=== PATIENT | female | born 1965 | race African-American/Black ===

== ENCOUNTER 2015-12-21 14:05 | Outpatient (RCR) | payer OTHER | END 2016-02-29 | LOC: WSOH | DX: M25.511 Pain in right shoulder (principal) ==

== ENCOUNTER 2019-03-01 11:37 | Emergency (ER) | payer OTHER ==
[~2019-03-01] VITALS: Ht 157.5 cm; Wt 85.5 kg
[2019-03-01 11:43] VITALS: BP 164/93; TEMP 98.2
[2019-03-01 11:56] LABS: COLLECTION METHOD CLEAN CATCH
[2019-03-01 12:05] LABS: MUCOUS Present /lpf; PH 5 (5-8); SQUAMOUS EPITHELIAL 0-2 /hpf; URINE APPEARANCE Clear; URINE BACTERIA None Seen /hpf; URINE BILIRUBIN Negative (NEGATIVE); URINE BLOOD Negative (NEGATIVE); URINE COLOR Yellow; URINE GLUCOSE Negative (NEGATIVE); URINE KETONE Negative (NEGATIVE); URINE LEUKOCYTE ESTERASE Negative (NEGATIVE); URINE NITRATE Negative (NEGATIVE); URINE PROTEIN(semi-quant) Negative (NEGATIVE); URINE RBC None Seen /hpf; URINE UROBILINOGEN Negative (NEGATIVE)
[2019-03-01] MEDS ORDERED: CEPHALEXIN500 M1 PO (12:17)
[2019-03-01 12:38] VITALS: PULSE 72
== END 2019-03-01 12:38 | disposition home or self-care (01) ==
LOC: COL.ER 11:37
PROVIDERS: Physician Assistant
DX: R30.0 Dysuria (principal); Z98.51 Tubal ligation status

== ENCOUNTER → 2019-09-18 | Outpatient (CLI) | payer OTHER ==
[~2019-09-18] MED LIST: CEPHALEXIN500 M1 PO
== END ==
LOC: COL.RAD 12:50
DX: M25.511 Pain in right shoulder (principal); Z96.611 Presence of right artificial shoulder joint
CPT/HCPCS: Q9967

== ENCOUNTER 2020-06-03 07:14 | Day surgery (SDC) | payer OTHER ==
[~2020-06-03] VITALS: Ht 157.5 cm; Wt 85.9 kg
[2020-06-03] MEDS ORDERED: TOPAMAX50 MG PO (07:33)
[2020-06-03] MEDS ORDERED: NEURONTIN100 MG/CAP PO (07:34)
[2020-06-03] MEDS ORDERED: ABILIFY20 MG PO (07:34)
[2020-06-03] MEDS ORDERED: PEPCID 20MG TAB20 MG PO (07:34)
[2020-06-03] MEDS ORDERED: GLUCOPHAGE500 MG/TAB PO (07:35)
[2020-06-03] MEDS ORDERED: MOTRIN 600600 MG/TAB PO (07:35)
[2020-06-03] MEDS ORDERED: ATARAX 25MG25 MG/TAB PO (07:35)
[2020-06-03] MEDS ORDERED: PROZAC 20MG20 MG PO (07:36)
[2020-06-03] MEDS ORDERED: VITAMIN D250 MCG PO (07:36)
[2020-06-03] MEDS ORDERED: CRESTOR 10MG10 MG PO (07:37)
[2020-06-03 07:42] VITALS: BP 140/80; PULSE 83; TEMP 97.3
--- NOTE | 2020-06-03 08:20 | NUR ---
The patient answered yes to one of the suicide risk questions but states that it was in the "past". She is retired and [facility]. The patient also felt that she has a support person/s locally that she can reach out to if these thoughts return.
[2020-06-03] MEDS ORDERED: ULTRAM 50MG TAB50 MG PO (12:28)
[2020-06-03 13:25] VITALS: BP 129/86; PULSE 92; TEMP 97.4
--- NOTE | 2020-06-03 13:25 | NUR ---
The patient arrived back to [facility] from recovery room at this time. The patient appears alert and oriented at this time. The patient denies any nausea but does report increased pain with movement. The patient denies wanting anything further for pain at this time. The patient agrees to try some water but denies wanting anything to eat. Post operative vital signs were started at this time. The patient has three bandaids to her abdomen that appear without redness or edema. The patient has an abdominal binder in place. Call light is within reach. Will continue to monitor the patient.
[2020-06-03 13:40] VITALS: BP 122/73; PULSE 84
--- NOTE | 2020-06-03 13:40 | NUR ---
The patient agrees to try some applesauce at this time. Post operative vital signs appear stable. Call light remains within reach. Will continue to monitor the patient.
[2020-06-03 13:55] VITALS: BP 139/77; PULSE 84
--- NOTE | 2020-06-03 13:55 | NUR ---
The patient continues to report pain in her abdomen. Since she tolerated the applesauce well she was given a PRN dose of Ultram 100 mg by mouth at this time for pain control. Will continue to monitor the patient.
[2020-06-03 14:10] VITALS: BP 121/72; PULSE 82
--- NOTE | 2020-06-03 14:10 | NUR ---
The patient ambulated to the bathroom with the stand by assistance of one nurse and appeared to tolerate the activity well. The patient voided without difficulty and voices a desire to be discharged home.
--- NOTE | 2020-06-03 14:20 | NUR ---
Discharge instructions were reviewed with the patient at this time. She verbalized understanding and has no questions for the nurse at this time. The patient's IV to her right hand was removed and a pressure dressing was applied to the site. The nurse instructed the patient to get dressed and and notify the staff when she is ready to be escorted out.
--- NOTE | 2020-06-03 14:30 | NUR ---
The patient was escorted out via wheelchair to a private vehicle by LATRICE Rose. The patient's belongings and discharge paperwork were sent with her. The patient's friend, Dimitrios, is present to drive her home.
== END 2020-06-03 14:30 | disposition home or self-care (01) ==
LOC: SDCO 07:14
DX: K43.2 Incisional hernia without obstruction or gangrene (principal); E11.9 Type 2 diabetes mellitus without complications; M19.90 Unspecified osteoarthritis, unspecified site; I10 Essential (primary) hypertension; K21.9 Gastro-esophageal reflux disease without esophagitis; G47.00 Insomnia, unspecified; G47.33 Obstructive sleep apnea (adult) (pediatric); E55.9 Vitamin D deficiency, unspecified; F32.9 Major depressive disorder, single episode, unspecified; F43.10 Post-traumatic stress disorder, unspecified; Z90.710 Acquired absence of both cervix and uterus; Z79.899 Other long term (current) drug therapy; Z79.84 Long term (current) use of oral hypoglycemic drugs; Z88.5 Allergy status to narcotic agent; Z99.89 Dependence on other enabling machines and devices; Z20.822 Contact with and (suspected) exposure to COVID-19; Z83.3 Family history of diabetes mellitus; Z80.9 Family history of malignant neoplasm, unspecified
CPT/HCPCS: C1781; J0690; J1100; J1885; J2405; J2704; J3010; J7030